=== PATIENT | female | born 2005 | race Caucasian/White ===

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

== ENCOUNTER 2025-06-30 08:49 | Observation (INO) ==
--- NOTE | 2025-06-30 08:49 | ED Physician Documentation ---
History of Present Illness Stated complaint Stated Complaint: N/V Chief complaint Chief Complaint: Abd Pain History obtained from History obtained from: Patient Additonal information Additional information: This is a 19-year-old with history of cannabinoid hyperemesis who presents with vomiting and abdominal pain going on for the last 3 to 4 days. It is typical for her exacerbations of this. That said she denies current drug use. She was seen last night and noted to have low potassium in the range of 2.9. Ended up improving and being discharged. She was prescribed Phenergan suppositories which she has not been able to obtain at the pharmacy yet. She returns with persistent vomiting and upper abdominal pain that is nonradiating. She had extensive workup last night demonstrating negative testing and otherwise unremarkable lab work. Meds/Allgy Home Medications Ambulatory Orders Medication Instructions Recorded Confirmed fluoxetine 20 mg capsule 20 mg PO DAILY 12/07/2406/19 hydroxyzine HCl 50 mg tablet 50 - 100 mg PO QPM 06/29/25 pantoprazole 20 mg tablet,delayed 20 mg PO QAM 5 06/29/25 release albuterol sulfate 90 mcg/actuation 2 puff inhalation Q ID PRN 12/08/24 06/29/25 aerosol inhaler (Ventolin HFA) shortness of breath or wheezing #8.5 grams metoclopramide HCl 10 mg tablet 10 mg PO Q6H PRN nause a and 12/08/24 06/29/25 vomiting #30 tabs mirtazapine 15 mg tablet 30 mg (2 x 15 mg) PO QPM #30 tabs 12/08/24 06/29/25 trazodone 50 mg tablet 50 mg PO NIGHTLY 12/09/24 gabapentin 300 mg capsule 300 mg PO HS #21 caps 06/29/25 promethazine 25 mg rectal 25 mg OK Q4H PRN nausea and 06/30/25 suppository (Promethegan) vomiting #12 ea Allergies Allergies Allergy/AdvReac Type Severity Reaction Status Date / Time No Known Drug Allergies Allergy Verified 06/30/25 08:51 PFSH Active Problems All Active Problems (Updated 06/30/25 @ 10:07 by Darek Hickman MD) Vomiting (Acute) Syncope (Acute) Elevated blood pressure reading (Acute) Acute hypokalemia (Acute) Cyclical vomiting, intractable (Acute) Hypokalemia due to excessive gastrointestinal loss of potassium (Acute) Depression (Acute) Anxiety (Acute) Medical History Medical History (Updated 06/30/25 @ 10:07 by Darek Hickman MD) UTI (urinary tract infection) Hyperemesis Social History Social History If you are a former smoker, when did you quit? (Date/Year): 07/18/24 Do you vape?: Yes Living arrangement: At home Marital Status: Domestic Partner Living Condition: With family Support Person: Yes Physical Activity: Walking Level: Independent Do you feel safe in your home environment?: Yes History of physical, verbal, emotional, or financial abuse?: No ETOH Use: None Substance Use: cannabis (any form) Substance Use Details: stopped a week ago Are you sexually active?: Yes Exam Exam Vital Signs: Vital Signs x48h Temp Pulse Resp BP Pulse Ox 06/30/25 08:48 36.6 C 107 H 30 H 135/95 H 100 Constitutional Anxious and hyperventilating. She gets carpal spasms with blood pressure cuff inflation. Gastrointestinal abdomen soft to palpation, nontender to palpation and nontender to percussion Neurology GCS 15 Results Vitals Vitals: Vital Signs - 24 hr 06/30/25 02:51 06/30/25 08:48 Temperature 36.6 C Temperature Source Temporal Artery Scan Pulse Rate 107 H Respiratory Rate 30 H Blood Pressure 135/95 H O2 Saturation 100 O2 Source Room air Room air Pain Intensity 2 4 Oxygen O2 Source Room air Labs Labs: Laboratory Tests 06/30/25 08:57 Sodium 137 Potassium 2.6 L Chloride 107 Carbon Dioxide 19 L Anion Gap 11.0 BUN 9 Creatinine 0.7 Estimated GFR (MDRD) 108 Glucose 123 H Calcium 8.7 PD Medical Decision Making ED course ED course: She presents with exacerbation of chronic intermittent vomiting and abdominal pain with benign examination. She had complete workup last night and I only ordered a repeat BMP given her history of hypokalemia and this came back lower than last night at 2.6. IV and oral repletion was ordered. She had been administered IV droperidol. After which she looks more comfortable but still is noting some nausea. Zofran ordered. She was slightly sedated after the droperidol so I am trying to avoid further sedating medications. After the Zofran and potassium we had flagged her for discharge, but then just prior to discharge vomited again and a dose of IV Reglan was ordered. I offered her admission at that time, but she at least initially declined wanting to try more medications. On reevaluation after IV metoclopramide she vomited again and is amenable to inpatient observation. Decision to admit made 11:03 AM, MUSIC DIRECTOR querying bed status. We did have 1 bed available inpatient and I spoke with Dr. Shazia Davies for observation at 11:05 AM. Discharge Plan Discharge Patient Disposition: ED Place in Observation Condition: Stable Clinical Impression: Hypokalemia due to excessive gastrointestinal loss of potassium, Cyclical vomiting, intractable Prescriptions: No Action hydroxyzine HCl 50 mg tablet 50 - 100 mg PO QPM Rx Instructions: 1 tablet orally every evening; may repeat x 1 for Itching. fluoxetine 20 mg capsule 20 mg PO DAILY Patient Comments: TAKE ONE CAPSULE BY MOUTH ONCE DAILY pantoprazole 20 mg tablet,delayed release (DR/EC) 20 mg PO QAM Patient Comments: TAKE 1 TABLET BY MOUTH EVERY MORNING (BEFORE BREAKFAST). mirtazapine 15 mg Tablet 30 mg PO QPM Qty: 30 0RF albuterol sulfate [Ventolin HFA] 90 mcg/actuation HFA aerosol inhaler 2 puff inhalation QID PRN (Reason: shortness of breath or wheezing) Qty: 8.5 0RF metoclopramide HCl 10 mg tablet 10 mg PO Q6H PRN (Reason: nausea and vomiting) Qty: 30 0RF Patient Comments: Take 1 tablet by mouth every 6 hours as needed for Nausea. trazodone 50 mg tablet 50 mg PO NIGHTLY Patient Comments: Take 1-2 tablets by mouth at bedtime as needed for Insomnia. gabapentin 300 mg Capsule 300 mg PO HS Qty: 21 0RF promethazine [Promethegan] 25 mg suppository 25 mg OK Q4H PRN (Reason: nausea and vomiting) Qty: 12 0RF Activity Restrictions/Additional Instructions: You should obtain the prescription you received last night for nausea. Return if you worsen. Follow-up with your primary care physician, next available appointment. Print Language: Armenian Patient Instructions: ED Vomiting (Adult) Stand Alone Forms: PCP List
[2025-06-30] MEDS: SODIUM CHLORIDE 0.9% 1,000 ML IV STA (08:54)
[2025-06-30] MEDS: DROPERIDOL 5 MG/2 ML VIAL IVP STA (08:54)
[2025-06-30 09:19] LABS: BUN - BLOOD UREA NITROGEN 9.0 mg/dL (6-20); CARBON DIOXIDE - CO2 19.0 mmol/L (21-32); CREATININE 0.7 mg/dL (0.6-1.3); GFR - MDRD 108.0 (>89)
[2025-06-30] MEDS: POTASSIUM CHLOR 10 MEQ/100 ML 10 MEQ/100 ML BAG IV STA (09:33)
[2025-06-30] MEDS: POTASSIUM BICARB 25 MEQ TABLET PO STA (09:33)
[2025-06-30] MEDS: ONDANSETRON 4 MG/2 ML VIAL IVP STA (09:37)
[2025-06-30] MEDS: METOCLOPRAMIDE 10 MG/2 ML VIAL IVP STA (10:21)
--- NOTE | 2025-06-30 11:35 | HISTORY & PHYSICAL EXAMINATION ---
Chief Complaint Chief Complaint Chief Complaint: Intractable nausea and vomiting History of Present Illness Admitted From Admitted From:: Home History Obtained From Records Reviewed: EMR History obtained from: Patient Exam Limitations: None History of Present Illness HPI Comment/Other: Patient is a 19-year-old female with a history of anxiety, depression, cyclical vomiting syndrome who presents with intractable nausea and vomiting. She states that your belly the vomiting started on Thursday. She states that even if she takes a few sips of water, she throws up. She cannot quantify how many times she has thrown up, but it is at least 5 times a day since Thursday. She describes the vomitus as recently ingested food, and then eventually becomes acidic. She has had persistent nausea since. She also has had some diarrhea. Her last episode of diarrhea was 2 days ago, and she has had nothing since. The retching and dry heaving has resulted in abdominal pain, which is worse in her epigastric region. It has no radiation to anywhere else. She describes it as a soreness, and feeling like emptiness on the inside. She states that there is no chance she is . She also states that she has not been using any marijuana. She has no other medical conditions that she knows of. She has never seen a court clerk before. She does not recall eating anything funny in the last few days. Nobody else in the family or anybody that she lives with has had similar symptoms. Of note, patient has had similar admissionsfirst, was on 12/07/2024, and she stayed for 3 days. She then came back on 12/09, and stayed for an additional 5 days. At that time, an abdominal ultrasound was done which was unremarkable. In the ER, she was vitally stableafebrile, normal heart rate, saturating 99% on room air. Blood pressure was 135/81. Lab work was reviewedher white count was elevated at 15, and her potassium was low at 2.6. She does have a non-anion gap metabolic acidosis. test, as well as urine drug screen is always pending. Past medical history includes anxiety and depression. For this, she is on hydroxyzine, fluoxetine, aripiprazole. She has no allergies to any medications. She has never had any surgical procedures done. She denies any alcohol, tobacco, recreational drug use. She works as an assistant infant toddler teacher. Her boyfriend is present in the room with her. Meds/Allgy Home Medications Ambulatory Orders Medication Instructions Recorded Confirmed fluoxetine 20 mg capsule 20 mg PO DAILY 12/07/2406/19 hydroxyzine HCl 50 mg tablet 50 - 100 mg PO QPM 06/30/25 trazodone 50 mg tablet 50 - 100 mg PO NIGHTLY PRN i nsomnia 12/09/24 06/30/25 aripiprazole 2 mg tablet 2 mg PO DAILY 06/30/2506/30 Allergies Allergies Allergy/AdvReac Type Severity Reaction Status Date / Time No Known Drug Allergies Allergy Verified 06/30/25 08:51 PFSH Active Problems All Active Problems (Updated 06/30/25 @ 14:16 by Shazia Davies MD) Vomiting (Acute) Syncope (Acute) Elevated blood pressure reading (Acute) Acute hypokalemia (Acute) Cyclical vomiting, intractable (Acute) Hypokalemia due to excessive gastrointestinal loss of potassium (Acute) Depression (Acute) Anxiety (Acute) Medical History Medical History (Updated 06/30/25 @ 14:16 by Shazia Davies MD) UTI (urinary tract infection) Hyperemesis Social History Social History If you are a former smoker, when did you quit? (Date/Year): 07/18/24 Do you dip or chew tobacco?: No Do you vape?: Yes Patient requests smoking cessation consult: No Initiate information on smoking cessation: No Living arrangement: At home Marital Status: Domestic Partner Living Condition: With family Support Person: Yes Physical Activity: Walking Level: Independent Do you feel safe in your home environment?: Yes History of physical, verbal, emotional, or financial abuse?: No ETOH Use: None Substance Use: cannabis (any form) Substance Use Details: stopped a week ago Are you sexually active?: Yes POLST Patient has POLST: No Review of Systems Constitutional Reports: Malaise, Weakness and Poor appetite; Denies: Fatigue, Fever or Chills Eyes Denies: Pain, Irritation, Blurry vision or Vision loss Ears, nose, mouth, and throat Reports: Neck pain; Denies: Ear pain, Hearing loss, Tinnitus, Nose bleeds or Nasal discharge Cardiovascular Denies: Irregular heart rate, chest pain, palpitations, edema, Syncope or shortness of breath with exertion Respiratory Denies: Shortness of breath, Cough, Sputum production or Wheezing Gastrointestinal Reports: Abdominal pain, Nausea, Vomiting and Diarrhea; Denies: Abdominal distention, Heartburn or Constipation Genitourinary Denies: Painful urination, Urinary frequency or Urinary urgency Musculoskeletal Reports: Neck pain; Denies: Back pain, Extremity pain, Extremity swelling or Joint pain Integumentary/Breast Denies: Rash, Itching, Dryness, Redness or Skin pain Neurological Reports: General weakness; Denies: Headache, Weakness in extremities, Numbness in extremities, Abnormal gait or Dizziness Psychiatric Denies: Depression, Anxiety, Mood swings or Panic attacks Endocrine Denies: Excessive urination, Excessive thirst or Fatigue Hematologic/Lymphatic Denies: Anemia, Easy bruising or Easy bleeding Allergic/Immunologic Denies: Hives, Tongue swelling, Facial swelling or Wheezing Prior Level of Functionality: Independent of ADLs. Exam Exam Vital Signs: Vital Signs x48h Temp Pulse Pulse Resp BP BP Pulse Ox 06/30/25 11:41 99.0 F 68 18 140/91 H 96 06/30/25 11:15 75 16 135/81 H 99 06/30/25 08:48 97.9 F 107 H 30 H 135/95 H 100 Constitutional normal general appearance, average body habitus and no limitations Patient appears mildly distressed due to ongoing nausea. She does have episodes of tearfulness during history taking. HENMT normocephalic, head/scalp atraumatic and hearing grossly normal bilaterally Eyes PERRL, EOMs intact bilaterally and conjunctivae normal Neck/C-Spine visual inspection normal, trachea midline and cervical spine nontender Chest inspection of chest normal Respiratory breath sounds equal bilaterally, normal respiratory effort, clear to auscultation bilaterally, no wheezes, no rales and no retractions Cardiovascular normal heart rate noted, regular rhythm noted, no gallop, no rub and no murmur Gastrointestinal abdomen normal to inspection, abdomen soft to palpation, tender to palpation (mild) and (epigastric) and normoactive bowel sounds Genitourinary no CVA tenderness and bladder normal to palpation Back/Pelvis spine normal to inspection, no thoracic spine tenderness and no lumbar spine tenderness Extremities normal to inspection, normal to palpation, no tenderness and full ROM Neurology no movement abnormality noted and no focal motor deficit noted Psychiatry mental status grossly normal, oriented x3, thought process normal, cooperative and affect normal Skin skin color normal, no rash, no lesions and no wounds Conclusion/Plan Problem List (1) Cyclical vomiting, intractable: Plan: Patient presents with intractable nausea and vomiting. Has had a similar episode prior, in 12/13. Continue Zofran, Compazine as needed. Continue aggressive IV fluid rehydration. If patient continues with intractable nausea and vomiting or worsened abdominal pain, CT abdomen/pelvis will be ordered. Patient will likely need gastric emptying study done in the outpatient setting with this being a repeated episode. Drug screen, urine beta-hCG ordered, pending. (2) Hypokalemia due to excessive gastrointestinal loss of potassium: Plan: Repleted with IV potassium as patient cannot tolerate p.o. potassium. Continue to trend later today. Ensure magnesium is within normal limits as well. (3) Depression: Plan: Continue Abilify. Qualifiers: Depression Type: unspecified Qualified Code(s): F32.A - Depression, unspecified (4) Anxiety: Plan: Continue trazodone and hydroxyzine. Lab Results Lab results reviewed: Yes 06/30/25 08:57 Core Measures Anticipated LOS I expect patient to be DC'd or transferred within 96 hours.: Yes Issues Hospital Issues and Management Plan: None anticipated. DVT/VTE - Prophylaxis VTE/DVT Prophylaxis med ordered at admit?: Yes
--- NOTE | 2025-06-30 12:12 | PHARMACY PROGRESS NOTE ---
Best Possible Medication History Admit Date and Time: 06/30/25 392161 Home Medications Medication Instructions Recorded Confirmed Type fluoxetine 20 mg capsule 20 mg PO DAILY 12/07/2406/19 History hydroxyzine HCl 50 mg tablet 50 - 100 mg PO QPM 06/30/25 History trazodone 50 mg tablet 50 - 100 mg PO NIGHTLY PRN i nsomnia 12/09/24 06/30/25 History aripiprazole 2 mg tablet 2 mg PO DAILY 06/30/2506/30 History Processed by: Pharmacy Medications reviewed in ED?: No Medication History completed: Yes Patient Interview: Completed Secondary Source(s): Pharmacy records and Insurance records [facility] Statement: As the person ultimately responsible for medication therapy, providers are able to order a medication from an existing home medication list in [facility] via the "Reconcile Routine" prior to Confirmation of that medication by child support case officer. Such practice is discouraged except when the physician, in their clinical judgment, deems that a medical need exists for a medication without regard to previous use.
[2025-06-30] MEDS: LACTATED RINGERS 1,000 ML IV SCH (12:17)
[2025-06-30] MEDS: POTASSIUM CHLOR 10 MEQ/100 ML 10 MEQ/100 ML BAG IV SCH ×3 (12:18→21:57)
[2025-06-30] MEDS: KETOROLAC 15 MG/ML VIAL IVP STA (13:41)
[2025-06-30 14:13] LABS: AMPHETAMINE SCREEN,URINE NEGATIVE (NEGATIVE); BARBITURATE SCREEN,UR NEGATIVE (NEGATIVE); BENZODIAZEPINES SCREEN, URINE POSITIVE (NEGATIVE); BUPRENORPHINE SCREEN, URINE NEGATIVE (NEGATIVE); COCAINE SCREEN URINE NEGATIVE (NEGATIVE); METHADONE SCREEN, URINE NEGATIVE (NEGATIVE); METHAMPHETAMINES SCREEN, URINE NEGATIVE (NEGATIVE); OPIATE SCREEN, URINE NEGATIVE (NEGATIVE); THC CANNABINOID SCREEN, URINE POSITIVE (NEGATIVE)
[2025-06-30] MEDS: SODIUM CHLORIDE FLUSH 0.9% 10 ML SYRINGE IVP SCH (16:39)
[2025-06-30 17:00] LABS: HCG UR QUAL NEGATIVE
[2025-06-30] MEDS: ONDANSETRON 4 MG/2 ML VIAL IVP PRN (19:44)
[2025-06-30] MEDS: SODIUM CHLORIDE FLUSH 0.9% 10 ML SYRINGE IVP PRN (20:22)
[2025-06-30] MEDS: KETOROLAC 15 MG/ML VIAL IVP PRN (20:22)
[2025-06-30] MEDS: PROCHLORPERAZINE 10 MG/2 ML VIAL IVP PRN (21:50)
[2025-06-30] MEDS: FLUoxetine 10 MG CAPSULE PO SCH (21:55)
[2025-07-01] MEDS: CAPSAICIN 0.025% CREAM 60 GM TUBE TOP SCH (01:10)
[2025-07-01 05:35] LABS: HCT - HEMATOCRIT 36.8 % (37.0-47.0); HGB - HEMOGLOBIN 12.0 g/dL (12.0-16.0); MEAN PLATELET VOLUME 11.0 fL (7.9-10.8); PLT - PLATELET COUNT 255.0 10^3/uL (130-450); RED CELL DISTRIBUTION WIDTH 13.6 % (12.0-15.0)
[2025-07-01 05:55] LABS: BUN - BLOOD UREA NITROGEN 4.0 mg/dL (6-20); CARBON DIOXIDE - CO2 22.0 mmol/L (21-32); CREATININE 0.6 mg/dL (0.6-1.3); GFR - MDRD 129.0 (>89)
[2025-07-01] MEDS ORDERED: FLUoxetine 10 MG CAPSULE PO SCH (09:00)
--- NOTE | 2025-07-01 09:35 | Discharge Summary ---
Discharge Summary Admit Date: 06/30/25 Discharge Date: 07/01/25 Discharging Provider: Dr. Shazia Davies Primary Care Provider: Dr. Villar Code Status: Attempt Resuscitation Discharge Facility Name: Home DIAGNOSES Discharge Diagnoses with Status of Each Condition: Cyclic vomiting syndromepatient presented with intractable nausea and vomiting that decreased overnight. She is tolerating p.o. intake. Patient was adequately hydrated. Nausea and emesis was relieved with hot showers, and warm water. Likely the underlying pathology is cannabis hyperemesis syndrome. She was sent home with capsaicin cream, and was advised to abstain from marijuana use. She was also sent home with a few pills of Zofran for the nausea. Beta- hCG was negative for . Hypokalemiaresolved. Depressioncontinue Abilify. Anxietycontinue trazodone and hydroxyzine. HPI History of Present Illness: Patient is a 19-year-old female with a history of anxiety, depression, cyclical vomiting syndrome who presents with intractable nausea and vomiting. She states that your belly the vomiting started on Thursday. She states that even if she takes a few sips of water, she throws up. She cannot quantify how many times she has thrown up, but it is at least 5 times a day since Thursday. She describes the vomitus as recently ingested food, and then eventually becomes acidic. She has had persistent nausea since. She also has had some diarrhea. Her last episode of diarrhea was 2 days ago, and she has had nothing since. The retching and dry heaving has resulted in abdominal pain, which is worse in her epigastric region. It has no radiation to anywhere else. She describes it as a soreness, and feeling like emptiness on the inside. She states that there is no chance she is . She also states that she has not been using any marijuana. She has no other medical conditions that she knows of. She has never seen a [employer] dispatcher before. She does not recall eating anything funny in the last few days. Nobody else in the family or anybody that she lives with has had similar symptoms. Of note, patient has had similar admissionsfirst, was on 12/07/2024, and she stayed for 3 days. She then came back on 12/09, and stayed for an additional 5 days. At that time, an abdominal ultrasound was done which was unremarkable. In the ER, she was vitally stableafebrile, normal heart rate, saturating 99% on room air. Blood pressure was 135/81. Lab work was reviewedher white count was elevated at 15, and her potassium was low at 2.6. She does have a non-anion gap metabolic acidosis. test, as well as urine drug screen is always pending. Past medical history includes anxiety and depression. For this, she is on hydroxyzine, fluoxetine, aripiprazole. She has no allergies to any medications. She has never had any surgical procedures done. She denies any alcohol, tobacco, recreational drug use. She works as an warehouse administrative assistant. Her boyfriend is present in the room with her. HOSPITAL COURSE Hospital Course: Patient is a 19-year-old female with history of anxiety, depression, cannabis use who presented with intractable nausea and vomiting. She states that this has been going on for about 2 to 3 days. Beta-hCG is negative. Her potassium was very low, at 2.6, and this was repleted to normal limits. She was advised to continue to stay hydrated at home, and drink Gatorade. Her nausea and vomiting was relieved with hot water, and her drug screen was positive for cannabinoids. This points towards cannabinoid hyperemesis syndrome. She was advised to abstain from cannabis use as this could worsen her cyclic vomiting. She was provided with Zofran as needed for nausea in case it persisted at home. She was advised to follow-up closely with her primary care provider, and if this were to happen again with cannabinoid cessation, she may need to see gastroenterology in the outpatient setting. ALLERGIES Allergies Allergy/AdvReac Type Severity Reaction Status Date / Time No Known Drug Allergies Allergy Verified 06/30/25 08:51 MEDICATIONS Ambulatory Orders Medication Instructions Recorded Confirmed fluoxetine 20 mg capsule 20 mg PO DAILY 12/07/2406/19 hydroxyzine HCl 50 mg tablet 50 - 100 mg PO QPM 06/30/25 trazodone 50 mg tablet 50 - 100 mg PO NIGHTLY PRN i nsomnia 12/09/24 06/30/25 aripiprazole 2 mg tablet 2 mg PO DAILY 06/30/2506/30 capsaicin 0.025 % topical cream 1 applic topical QID # 25 grams 07/01/25 ondansetron HCl 4 mg tablet 4 mg PO Q8H #14 tabs 07/01 PHYSICAL EXAM AT DISCHARGE Vital Signs: Vital Signs x48h Temp Pulse Pulse Resp BP Pulse Ox 07/01/25 11:20 98.2 F 70 18 134/86 H 99 07/01/25 08:33 98.1 F 77 22 138/83 H 98 Constitutional normal general appearance, average body habitus and no limitations HENMT normocephalic, head/scalp atraumatic and hearing grossly normal bilaterally Eyes PERRL, EOMs intact bilaterally and conjunctivae normal Neck/C-Spine visual inspection normal, trachea midline and cervical spine nontender Chest inspection of chest normal Respiratory breath sounds equal bilaterally, normal respiratory effort, clear to auscultation bilaterally, no wheezes, no rales and no retractions Cardiovascular normal heart rate noted, regular rhythm noted, no gallop, no rub and no murmur Gastrointestinal abdomen normal to inspection, abdomen soft to palpation, tender to palpation (mild) and (epigastric) and normoactive bowel sounds Genitourinary no CVA tenderness and bladder normal to palpation Back/Pelvis spine normal to inspection, no thoracic spine tenderness and no lumbar spine tenderness Extremities normal to inspection, normal to palpation, no tenderness and full ROM Neurology no movement abnormality noted and no focal motor deficit noted Psychiatry mental status grossly normal, oriented x3, thought process normal, cooperative and affect normal Skin skin color normal, no rash, no lesions and no wounds LABS 07/01/25 04:51 07/01/25 04:51 FOLLOW UP Follow Up: Follow up PCP. Follow up GI doctor. TIME SPENT Time Spent in Discharge (Minutes): 35 Discharge Plan Discharge Patient Disposition: 01 Home, Self Care Condition: Stable Prescriptions: New ondansetron HCl 4 mg tablet 4 mg PO Q8H Qty: 14 0RF capsaicin 0.025 % Cream 1 applic topical QID Qty: 25 0RF Continued hydroxyzine HCl 50 mg tablet 50 - 100 mg PO QPM Rx Instructions: 1 tablet orally every evening; may repeat x 1 for Itching. fluoxetine 20 mg capsule 20 mg PO DAILY Patient Comments: TAKE ONE CAPSULE BY MOUTH ONCE DAILY trazodone 50 mg tablet 50 - 100 mg PO NIGHTLY PRN (Reason: insomnia) Patient Comments: Take 1-2 tablets by mouth at bedtime as needed for Insomnia. aripiprazole 2 mg tablet 2 mg PO DAILY Patient Comments: Take 1 tablet by mouth Daily for 30 days Diet: Soft Interventions: Belongings Inventory Last Done: 06/30/25 11:55 Discharge Last Done: 07/01/25 13:40 Discharge Checklist - Nursing Last Done: 07/01/25 13:40 Discharge Vital Signs (30 Minutes) Last Done: 07/01/25 11:20 Health Concerns: You came in for intractable nausea and vomiting. This is temporarily relieved with you taking hot showers, as well as anti-nausea medications. Your drug screen was positive for cannabinoid use. Likely, what you have is a condition called cannabis hyperemesis syndrome. Cannabis hyperemesis syndrome is a condition caused by frequent and long-term use of cannabis. It leads to repeated episodes of severe nausea, vomiting, and belly pain. Many people with CHS find that taking hot showers or baths helps their symptoms, but this relief is only temporary. The only proven way to stop CHS is to stop using cannabis for a long period of time. Symptom Relief at Home: Hot Showers/Baths: These may help temporarily with nausea and pain, but do not treat the underlying problem. Topical Capsaicin Cream: I have prescribed capsaicin cream (0.1%) to apply to your upper abdomen. This can help with nausea and vomiting. Wash your hands after use and avoid contact with eyes. Some people feel a burning sensation where the cream is applied. Medications: I am going to prescribe you ondansetron if you have nausea. These can help with symptoms but are not a cure. The only treatment for this is to stop using cannabis for a long period of time. Please continue to stay hydrated, drink plenty of water or Gatorade. Please continue to advance your diet as you can tolerate. I would stick with broths and bland food for now. I have attached a handout on a bland diet that you should follow. Please follow-up with your primary care provider, if this persists, even after you have stopped using cannabis, you will likely need referral to a [employer] dispatcher like we talked about. They may do further testing. We are glad you are feeling better, thanks for allowing us to take care of you. Print Language: Citizen Of [place] Patient Instructions: Cannabis Hyperemesis Syndrome (CHS), Soft [place] Diet Dc, ED Vomiting (Adult) Stand Alone Forms: PCP List Vitals documented within 30 minutes of discharge?: Yes
[2025-07-01 13:45] VITALS: BP 134/86; TEMP 98.2; O2SAT 99
== END 2025-07-01 11:45 | disposition home or self-care (01) ==
LOC: ED 08:49 → MS3 08:49
PROVIDERS: ADMIT Internal Medicine; ATTEND Internal Medicine
DX: R10.13 Epigastric pain; E87.6 Hypokalemia; R11.15 Cyclical vomiting syndrome unrelated to migraine; F32.A Depression, unspecified; F41.9 Anxiety disorder, unspecified; F17.290 Nicotine dependence, other tobacco product, uncomplicated